=== PATIENT | male | born 1980 ===

== ENCOUNTER 2025-02-11 11:30 | Outpatient (REF) | payer BC, SELFPAY ==
[2025-02-11 15:38] LABS: Abs Immature Grans 0.03 10^3/uL (0.0-0.06); HCT 46.5 % (40.0-50.0); HGB 15.9 g/dL (13.5-17.5); Immature Grans % 0.3 %; MCH 31.2 pg (27.0-33.0); MCHC 34.2 % (32.0-36.0); MCV 91 fL (80-95); MPV 9.8 fL (8.0-11.0); Platelet Count 289 10^3/uL (130-400); RBC 5.09 10^6/uL (4.36-5.78); RDW 12.8 % (11.8-14.1); RDW-SD 42.7 fL; WBC 11.26 10^3/uL (4.4-10.8)
[2025-02-11 17:12] LABS: ALT 47 U/L (16-63); AST 17 U/L (15-37); Albumin 4.5 g/dL (3.4-5.0); Alkaline Phosphatase 82 U/L (46-116); Anion Gap 13.0 mmol/L (3-11); BUN 13 mg/dL (7-18); Bilirubin, Total 0.4 mg/dL (0.2-1.0); CO2 24.0 mmol/L (21.0-32.0); Calcium 9.5 mg/dL (8.5-10.1); Calculated LDL 85 mg/dL (<100); Chloride 100 mmol/L (98-107); Cholesterol 192 mg/dL (<200); Estimated GFR 95.77 (mL/min/1.73m2); Glucose 213 mg/dL (74-106); HDL Cholesterol 36 mg/dL (>or=40); Potassium 4.1 mmol/L (3.5-5.1); Sodium 137 mmol/L (136-145); TSH 1.66 uIU/mL (0.36-3.74); Total Protein 7.7 g/dL (6.4-8.2); Triglyceride 355 mg/dL (<150)
[2025-02-11 17:15] LABS: COMMENT (LAB VIEW ONLY) 53.26 mg/dL; Microalb ug/mg Crea 26.1 ug/mg Cr
== END 2025-02-11 11:31 | disposition home or self-care (01) ==
LOC: NCHCN 11:30
PROVIDERS: Visit Provider Family Medicine
DX: Z00.00 Encounter for general adult medical examination without abnormal findings (principal); E78.5 Hyperlipidemia, unspecified; E11.69 Type 2 diabetes mellitus with other specified complication
CPT/HCPCS: 80053; 80061; 82043; 82570; 84443; 85025